=== PATIENT | female | born 1990 | race Caucasian/White ===

== ENCOUNTER 2016-04-06 13:45 | Emergency (ER) | payer MEDICAID ==
[~2016-04-06] VITALS: Ht 170.2 cm; Wt 88.0 kg
[2016-04-06 13:47] VITALS: BP 137/72; PULSE 82; RESP 12; TEMP 98.5; O2SAT 98
[2016-04-06] MEDS ORDERED: CITA40TA4 PO (14:29)
--- NOTE | 2016-04-06 14:49 | PD ---
HPI Chief Complaint: Injury Time Seen by Provider: 14:49 Travel History International Travel<30 days: No Contact w/Intl Traveler<30days: No Traveled to known affect area: No History of Present Illness HPI 25-year-old female presents to the emergency department complaint of right fifth toe pain, swelling, and ecchymosis since yesterday. [place] and when she got home and took her shoe off she realized she had injured her toe somehow. She came in for evaluation today because of worsening of the ecchymosis and swelling. She has not taken any medications for the pain. She has been ambulatory on the affected extremity, with a limp. Paresthesias, loss of sensation, decreased range of motion, decreased strength to the affected extremity. Denies paresthesias, loss of sensation to the affected toe. Denies fever, chills, nausea, vomiting. No known allergies. No other modifying factors or associated signs and symptoms. PFSH Past Medical History Depression: Yes Tetanus Vaccination: < 5 Years ?: Not Social History Alcohol Use: Yes Tobacco Use: Yes Substance Use: No Allergies-Medications (Allergen,Severity, Reaction): Coded Allergies: No Known Allergies (Unverified , 04/06/16) Reported Meds & Prescriptions Reported Meds & Active Scripts Active Reported Citalopram (Citalopram Hydrobromide) 40 Mg Tab 40 Mg PO DAILY Review of Systems Except as stated in HPI: all other systems reviewed are Neg Physical Exam Narrative GENERAL: Well-nourished, well-developed female patient, in no acute distress SKIN: Warm and dry. HEAD: Atraumatic. Normocephalic. EYES: Pupils equal and round. No scleral icterus. No injection or drainage. ENT: Mucosa pink and moist. Airway patent. NECK: Trachea midline. CARDIOVASCULAR: Regular rate. RESPIRATORY: No accessory muscle use. GASTROINTESTINAL: Rounded. MUSCULOSKELETAL: Right fifth toe with edema and ecchymosis that extends to the dorsal aspect of the foot just below the fifth toe; with tenderness to palpation ; sensory intact; no obvious deformity; less than 3 second cap refill. Right lower extremity supple and non-tense with 2+ pedal pulses and sensory intact without erythema or edema. No obvious deformities. No clubbing. No cyanosis. No edema. NEUROLOGICAL: Awake and alert. Oriented 3. No obvious cranial nerve deficits. Motor grossly within normal limits. Normal speech. PSYCHIATRIC: Appropriate mood and affect; insight and judgment normal. Data Data Last Documented VS Vital Signs Date Time Temp Pulse Resp B/P Pulse Ox O2 Delivery O2 Flow Rate FiO2 04/06/16 13:47 98.5 82 12 137/72 98 Room Air Orders Foot, Complete ([id number]) (04/06/16 14:29) Shoe Post Op (04/06/16 ) Crutches (04/06/16 15:24) Splint Or Brace Apply/Monitor (04/06/16 15:24) [facility] Medical Decision Making Medical Screen Exam Complete: Yes Emergency Medical Condition: Yes Medical Record Reviewed: Yes Differential Diagnosis Fracture, dislocation, sprain Narrative Course 25-year-old female with right fifth toe injury. I with the patient a nonnarcotic and she declined at this time. Right foot x-ray ordered. 1523: Right foot x-ray concludes Fracture proximal phalanx fifth digit. Postop shoe provided for support. Crutches provided for support. Patient is medically cleared and stable for discharge. Discussed reasons to return to the emergency department. Instructed patient to follow up with primary care provider. Patient agrees with treatment plan. The patients vital signs are stable and the patient is stable for outpatient follow-up and treatment. Patient discharged home, stable and in no acute distress. Diagnosis Primary Impression: Toe fracture, right Qualified Code: S92.514A - Closed nondisplaced fracture of proximal phalanx of lesser toe of right foot, initial encounter Referrals: Primary Care Physician Patient Instructions: Crutch Instructions (ED), General Instructions Departure Forms: Tests/Procedures, Work Release Enter return to work date: Apr 09, 2016 Additional Instructions: Ibuprofen or Tylenol instructed neck needed for pain and inflammation Rest, ice, compress, and elevate extremity to decrease pain and inflammation Postop shoe for support Crutches for support Avoid aggravating activity; increase activity as tolerated Follow-up with primary care provider Return to the emergency department immediately with worsening symptoms Med/Other Pt SpecificInfo: Prescription(s) given Disposition: 01 DISCHARGE HOME Condition: Stable Ness Almazan Apr 06, 2016 14:49
--- NOTE | 2016-04-06 15:18 | RADRPT ---
EXAM DATE/TIME: 04/06/2016 14:44 [facility] COMPARISON: No previous studies available for comparison. INDICATIONS : Injured right foot yesterday, pain in 5th digit, 4th and 5th metatarsals, anterior and lateral foot a ppear swollen and bruised MEDICAL HISTORY : None. SURGICAL HISTORY : None. ENCOUNTER: Initial ACUITY: 1 day PAIN SCORE: 10/10 LOCATION: Right foot FINDINGS: There is oblique fracture of the shaft of the proximal phalanx of the fifth digit. No intra-articular extension is present. Bony mineralization is normal. CONCLUSION: 1. Fracture proximal phalanx fifth digit Maynor Pulliam MD on April 06, 2016 at 15:13 Board Certified Radiologist. This report was verified electronically.
== END 2016-04-06 15:48 | disposition home or self-care (01) ==
LOC: NEPB 13:45
DX: S92.514A Nondisplaced fracture of proximal phalanx of right lesser toe(s), initial encounter for closed fracture (principal); Z72.0 Tobacco use; X58.XXXA Exposure to other specified factors, initial encounter; Y93.61 Activity, american tackle football; Y92.838 Other recreation area as the place of occurrence of the external cause
CPT/HCPCS: 73630; 99283; E0113; L3260